=== PATIENT | male | born 1965 | race Caucasian/White ===

== ENCOUNTER 2019-02-11 17:10 | Inpatient (IN) | payer OTHER ==
[~2019-02-11] VITALS: Ht 165.1 cm; Wt 57.4 kg
[2019-02-11 20:00] VITALS: BP 153/88
--- NOTE | 2019-02-11 20:00 | NUR ---
Time: 1999 A 53 year old MALE admitted to under services of MANAV AYERS DO. Pt. arrived via ambulatory from ADMITTING. Chief complaint: ALCOHOL WITHDRAWAL. BILLY REYES
[2019-02-11] MEDS ORDERED: CLONIDINE HCL0.1 MG PO (20:13)
[2019-02-11] MEDS ORDERED: CHLORDIAZEPOXID10 M2 PO (20:14)
--- NOTE | 2019-02-11 20:15 | NUR ---
NOTIFIED OF PT'S ARRIVAL ON FLOOR. ALSO NOTIFIED OF VISIBLE TREMORS AND PT'S MED REC UP TO DATE. DISCUSSED PATIENT'S HOME SCRIPT OF LIBRIUM 10 MG BID. STATES HE WILL BE UP TO SEE PATIENT.
--- NOTE | 2019-02-11 20:24 | NUR ---
IN TO SEE PATIENT AT THIS TIME. NEW 20G IV INITIATED IN L FOREARM PER POLICY. DSD APPLIED. PT TOLERATED WELL.
[2019-02-11 20:38] LABS: BILIRUBIN NEGATIVE (NEGATIVE); BLOOD TRACE-LYSED (NEGATIVE); CLARITY CLEAR (CLEAR); COLOR YELLOW (YELLOW); GLUCOSE TRACE (NEGATIVE); KETONE NEGATIVE (NEGATIVE); LEUKO ESTERASE NEGATIVE (NEGATIVE); NITRITE NEGATIVE (NEGATIVE); SPECIFIC GRAVITY <= 1.005 (1.005-1.030); UROBILINOGEN 0.2 E.U./dl (0.2-1.0)
[2019-02-11 20:47] LABS: URINE AMPHETAMINES < 1000 (1000ng/ml); URINE BARBITURATES < 200 (200ng/ml); URINE BENZODIAZEPINES > 200 (200ng/ml); URINE CANNABINOIDS (THC) < 50 (50ng/ml); URINE COCAINE < 300 (300ng/ml); URINE METHADONE < 300 (300ng/ml); URINE OPIATES < 300 (300ng/ml)
[2019-02-11 20:55] VITALS: BP 162/89
--- NOTE | 2019-02-11 21:04 | NUR ---
1 MG IV ATIVAN ADMINISTERED SLOWLY PER ORDER. VISIBLE TREMORS NOTED. BP ELEVATED PER AUTOMATIC BP CUFF. LEASING DIRECTOR CURRENTLY IN ROOM TO DRAW STAT BLOODWORK ORDERED. WILL TAKE REPEAT BP MANUALLY WHEN DRAW IS COMPLETE.
[2019-02-11 21:11] LABS: BACTERIA TRACE; EPITHELIAL CELLS 0-2; WBC 0-2 wbc/hpf (0-5)
[2019-02-11 21:12] LABS: URINE PHENCYCLIDINE < 25 (25ng/ml)
[2019-02-11 21:15] VITALS: BP 144/76
[2019-02-11 21:18] LABS: BASO # 0.1 10*3/uL (0.0-0.1); BASO % 0.8 % (0.0-1.0); HEMATOCRIT 43.2 % (42.0-52.0); HEMOGLOBIN 15.1 g/dl (14.0-18.0); LYMPH # 0.9 10*3/uL (1.3-4.4); LYMPH % 14.6 % (27.0-41.0); MEAN CELL VOLUME 93.5 fl (80.0-94.0); MEAN CORPUSCULAR HGB 32.7 pg (27.0-31.0); MONO # 0.8 10*3/uL (0.1-1.0); MONO % 13.1 % (3.0-9.0); NEUT # 4.2 10*3/uL (2.3-7.9); NEUT % 71.3 % (47.0-73.0); PLATELET COUNT AUTOMATED 228 10*3/uL (130-400); RED BLOOD COUNT 4.62 10*6/uL (4.50-5.90); RED CELL DISTRI WIDTH 13.2 % (0-14.5); WHITE BLOOD COUNT 5.9 10*3/uL (4.8-10.8)
[2019-02-11 21:28] LABS: INTERNATIONAL NORM RATIO 0.9 (2.0-3.5)
[2019-02-11 21:35] LABS: ALBUMIN 4.1 gm/dl (3.1-4.5); ALKALINE PHOSPHATASE 63 U/L (45-117); BUN 10 mg/dl (7-24); CHLORIDE 102 mmol/L (98-107); CREATININE 1.01 mg/dL (0.70-1.30); SGOT/AST 47 IU/L (3-35); SGPT/ALT 39 U/L (12-78); SODIUM 137 mmol/L (136-145); TOTAL PROTEIN 7.6 gm/dL (6.4-8.2)
[2019-02-12] VITALS: BP 149/84
--- NOTE | 2019-02-12 02:36 | NUR ---
PATIENT UNABLE TO SLEEP, SITTING ON EDGE OF BED. MEDICATED WITH PRN TRAZADONE. WILL CHECK EFFECTIVENESS.
[2019-02-12 08:00] VITALS: BP 142/71
--- NOTE | 2019-02-12 08:11 | NUR ---
PATIENT MEETS [facility]. PATIENT STATED THAT HE WANTS TO FOLLOW UP WITH [facility] MEETINGS. [facility] STAFF WILL FOLLOW UP WITH PATIENT. EYAL FLEMING B.A. BEHAVIOR SUPPORT SPECIALIST
--- NOTE | 2019-02-12 09:12 | NUR ---
[facility] STAFF FOLLOWED UP WITH PATIENT. PATIENT STATED THAT HE WOULD GO TO COUNSELING. [facility] STAFF WILL FOLLOW BACK UP WITH PATIENT WITH REFERRAL OPTIONS. EYAL FLEMING B.A. WORKERS COMPENSATION ANALYST
[2019-02-12] MEDS ORDERED: CHLORDIAZEPOXID25 M1 PO (10:42)
[2019-02-12 12:00] VITALS: BP 166/86
--- NOTE | 2019-02-12 14:19 | NUR ---
Discharge instructions reviewed with patient/family. Patient receptive and verbalizes understanding. Follow-up care arranged. Written instructions given to patient/family. GARTH RODRIGUEZ
== END 2019-02-12 14:19 | disposition home or self-care (01) | DRG 897 ==
LOC: 4E 17:10
PROVIDERS: Internal Medicine; ADMIT Internal Medicine
DX: F10.239 Alcohol dependence with withdrawal, unspecified (principal); F13.20 Sedative, hypnotic or anxiolytic dependence, uncomplicated; R25.1 Tremor, unspecified; R00.0 Tachycardia, unspecified; Z71.6 Tobacco abuse counseling; I10 Essential (primary) hypertension; F12.90 Cannabis use, unspecified, uncomplicated; Y90.9 Presence of alcohol in blood, level not specified; F17.210 Nicotine dependence, cigarettes, uncomplicated; R73.9 Hyperglycemia, unspecified; R74.0 Nonspecific elevation of levels of transaminase and lactic acid dehydrogenase [LDH]; Z79.899 Other long term (current) drug therapy